=== PATIENT | female | born 1990 | race Caucasian/White ===

== ENCOUNTER 2016-09-18 20:43 | Emergency (ER) | payer OTHER ==
[2016-09-18 21:30] LABS: MANUAL DIFF NEEDED? NO
[2016-09-18 21:35] LABS: BASO% 0.3 % (0.0-0.8); EOS# 0.05 X1000 (0.0-0.7); EOS% 0.4 % (0.0-10.0); HEMATOCRIT 36.6 % (37.0-47.0); HEMOGLOBIN 11.7 g/dL (12.0-16.0); IMM GRAN# 0.02 X1000 (0.0-0.04); IMM GRAN% 0.2 % (0.0-0.5); LYMPH# 1.35 X1000 (1.2-3.4); LYMPH% 11.6 % (20.5-51.1); MCH 26.7 PG (27-31); MCV 83.6 FL (81-99); MONO# 0.46 X1000 (0.11-0.59); MPV 12.6 FL (7.4-10.4); NEUT% 83.5 % (42.2-75.2); PLT 275 X1000 (130-400); RBC 4.38 XMIL (4.2-5.4)
--- NOTE | 2016-09-18 21:40 | PROVIDER DOCUMENTATION ---
HPI-Abdominal Pain/GI Problem - General Chief Complaint: Abdominal Pain Stated Complaint: GALBLADDER, VOMITING Time Seen by Provider: 09/18/16 21:13 Allergies/Adverse Reactions: Patient Allergies Allergy/AdvReac Type Severity Reaction Status Date / Time No Known Allergies Allergy Verified 09/18/16 21:12 Home Medications: Home Medication List Medication Instructions Recorded Confirmed Last Taken Type Hydrocodone/APAP 7.5 mg/325 mg 1 each PO Q6H PRN PRN #12 tablet 09/18/16 Unknown Rx [[place]-7.5] Promethazine [Phenergan] 25 mg PO Q6H PRN PRN #20 tablet 09/18/16 Unknown Rx - History of Present Illness-ABD Nature of Presenting Problems: Pt has been seen and diagnosed with gallstones. Unfortunately, she is and no one will remover her gallbladder. She has pain 10/10 in her RUQ that radiates to her back and nausea and vomiting. She states at this time she cannot handle the pain. Spoke to the patient about following up a PCP or obgyn Review of Systems - Adult - REVIEW OF SYSTEMS - ADULT Constitutional: reports: no symptoms reported. denies: chills, fever, fatique, night sweats, weight gain, weight loss Eyes: reports: no symptoms reported. denies: discharge, decreased vision, blurred vision, double vision, eye pain, redness Ears, Nose, Mouth & Throat: reports: no symptoms reported. denies: ear discharge, hearing loss, tinnitus, epistaxis, nose pain, mouth/dental pain, hoarseness, throat swelling Cardiovascular: reports: no symptoms reported. denies: chest pain, edema, heart murmur, irregular heart rate, palpitations, poor circulation, syncope Respiratory: reports: no symptoms reported. denies: chronic cough, dyspnea on exertion, excessive sputum production, hemoptysis, shortness of breath, wheezing Gastrointestinal: reports: see HPI, abdominal pain, nausea, rectal bleeding. denies: hematemesis, constipation, diarrhea, frequent heartburn Genitourinary: reports: no symptoms reported. denies: dysuria, discharge, frequency, flank pain, frequent UTI's, hematuria, urinary retention, urgency Musculoskeletal: reports: no symptoms reported. denies: bone pain, back pain, frequent leg cramps, joint swelling, muscle aches, muscle weakness, neck pain Integumentary: reports: no symptoms reported. denies: hives, hair loss, mole changes, rash, skin sores/ulcer, skin thickening Neurological: reports: no symptoms reported. denies: ataxia, dizziness/vertigo , headache/migraines, loss of balance, paresthesia, slurred speech, syncope, tremors Psychiatric: reports: no symptoms reported. denies: anxiety, alcohol/drug dependence, depression, insomnia, panic attacks, suicidal thoughts Endocrine: reports: no symptoms reported. denies: change in skin pigment, excessive sweating, goiter, cold intolerance, increased hunger, increased thirst , polyuria Hematologic/Lymphatic: reports: no symptoms reported. denies: blood clots, low blood count, prolonged bleeding, swollen lymph nodes, transfusions Allergic/Immunologic: reports: no symptoms reported. denies: allergic reactions , allergic rhinitis, asthma, eczema, frequent infections, hives, positive PPD, urticaria All Other Systems: Reviewed and Negative Past History - Adult - PAST MEDICAL HISTORY-ADULT Review of Records: reports: Old Records Reviewed, Nursing Assessment Review, Medications Reviewed, Social history reviewed & non-contributory. Major Childhood Illnesses: reports: denies history Cardiovascular: reports: denies history Respiratory: reports: denies history Gastrointestinal: reports: other (known GB dz) Obstetrical/Gynecological: reports: denies history Genitourinary: reports: denies history Musculoskeletal: reports: denies history Neurological: reports: denies history Endocrine/Immune: reports: denies history Other Conditions: reports: denies history - PRIOR SURGERIES/PROCEDURES Surgical/Procedure History: reports: none, orthopedic (extremity) (L leg ) - IMMUNIZATION STATUS Childhood Immunizations: See Nurse Assessment Flu Vaccine: See Nurse Assessment - FAMILY HISTORY Family History: reviewed, not pertinent - SOCIAL HISTORY Smoking: denies Substance Use: none/never Alcohol Use Frequency: never Living Situation: family Physical Exam-General - PHYSICAL EXAM-ADULT Initial Vital Signs Reviewed: Yes - CONSTITUTIONAL General Appearance: appears well, alert, no apparent distress - EYES Eyes: PERRL/EOMI, pink conjunctivae - HEAD, EARS, NOSE, MOUTH & THROAT HENMT: normocephalic/atraumatic, moist mucous membranes, normal ENT inspection - NECK Neck: non-tender, full range of motion, supple - RESPIRATORY Respiratory: chest non-tender, lungs clear, normal breath sounds, no pleuratic chest pain, no respiratory distress, no accessory muscle use - CARDIOVASCULAR Cardiovascular: normal peripheral pulses, regular rate, rhythm, no edema - CHEST (BREASTS) Chest/Breast: deferred - GASTROINTESTINAL (ABDOMEN) Abdominal Exam: normal bowel sounds, soft, tenderness, Joyner's sign - GENITOURINARY Female Genitalia/Pelvic Exam: deferred Rectal Exam: deferred - MUSCULOSKELETAL Back Exam: normal inspection, no CVA tenderness, no vertebral tenderness Extremity: normal range of motion, non-tender, normal gait, normal inspection - SKIN Integumentary: normal color, normal turgor, warm/dry - NEUROLOGIC Neurologic: residential sales II-XII nml as tested, grossly normal - PSYCHIATRIC Psych/Mental Status: normal mood/affect, normal thought content, normal thought process, oriented x 3 Progress - PLAN OF CARE/RESULTS Progress/Plan/Lab Results: Laboratory Tests 09/18/16 09/18/16 09/18/16 21:20 21:20 21:20 WBC 11.63 H RBC 4.38 Hgb 11.7 L Hct 36.6 L MCV 83.6 MCH 26.7 L MCHC 32.0 L RDW Std Deviation 14.3 Plt Count 275 MPV 12.6 H Immature Gran % (Auto) 0.2 Neut % (Auto) 83.5 H Lymph % (Auto) 11.6 L [place] % (Auto) 4.0 Eos % (Auto) 0.4 Baso % (Auto) 0.3 Immature Gran # (Auto) 0.02 Neut # (Auto) 9.72 H Lymph # (Auto) 1.35 [place] # (Auto) 0.46 Eos # (Auto) 0.05 Baso # (Auto) 0.03 Sodium 141 Potassium 4.3 Chloride 101 Carbon Dioxide 23 L Anion Gap 17 BUN 9 Creatinine 0.7 Estimated GFR/1.73 m2 > 60 BUN/Creatinine Ratio 13 Glucose 145 H Calculated Osmolality 283 Calcium 9.0 Total Bilirubin 0.58 AST 24 ALT 12 Alkaline Phosphatase 108 H Total Protein 7.7 Albumin 4.1 Globulin 3.6 Albumin/Globulin Ratio 1.1 Amylase 47 Lipase 31 Serum , Qual POSITIVE Orders Category Date Time Status AMYLASE [CHEM] Stat Lab 09/18/16 21:20 Completed CBC WITH DIFF [HEME] Stat Lab 09/18/16 21:20 Completed COMPREHENSIVE METABOLIC PANEL [CHEM] Stat Lab 09/18/16 21:20 Completed LIPASE [CHEM] Stat Lab 09/18/16 21:20 Completed TEST-SERUM [PREG] Stat Lab 09/18/16 21:20 Completed UA NIMS W/REFLEX CULT [URINALYSIS] Stat Lab 09/18/16 20:54 Uncollected Hydrocodone/APAP 10 mg/325 mg [[place]-10] Med 09/18/16 21:49 Discontinued 1 each PO NOW ONE Promethazine [Phenergan] Med 09/18/16 21:49 Discontinued 25 mg IM NOW ONE Vital Signs - 24 hr 09/18/16 20:50 Temperature 97.4 F L Pulse Rate 62 Respiratory 18 Rate Blood Pressure 127/61 O2 Sat by Pulse 100 Oximetry Departure - Departure Time of Disposition Order: 21:50 DIAGNOSIS: Gallstones, Nausea Abdominal pain Qualifiers: Abdominal location: right upper quadrant Qualified Code(s): R10.11 - Right upper quadrant pain Disposition: HOME 01 Certified Medical Emergency: Emergent Condition: Good Additional Instructions: follow up with PCP ED Follow Up Instructions: You have been treated by a care provider in the Emergency Department. These instructions are being provided to you so you can have an understanding of how to care for yourself upon discharge. Upon discharge from the Emergency Department, you are responsible for making arrangements for follow-up care by a physician of your choice. Take all prescribed medications as directed. Return to the Emergency Department immediately for any new or worsening symptoms. You may call the Physician Referral phone number at [phone] to obtain a list of Physicians who are taking new patients. Prescriptions: Hydrocodone/APAP 7.5 mg/325 mg [[place]-7.5] 1 each PO Q6H PRN PRN #12 tablet PRN Reason: Pain Promethazine [Phenergan] 25 mg PO Q6H PRN PRN #20 tablet PRN Reason: Nausea Referrals: None,PCP [Primary Care Provider] - Instructions: Nausea, Adult, Abdominal Pain, Adult, [id number], Cholecystitis , [id number] Attestation - Physician/ FARHAN Attestation Patient care was provided by Advanced Practice Provider:: Yes Advanced Practice Provider:: Dale Gandhi Advanced Practice Provider documentation review:: The Mid-level provider documentation, treatment plan and medical decision making was reviewed by the physician who agrees with all treatment and medical decision making by the MLP.
[2016-09-18 21:48] LABS: AGAP 17; ALBUMIN 4.1 g/dL (3.5-5.0); ALKALINE PHOSPHATASE 108 U/L (32-104); AMYLASE 47 U/L (20-200); BUN 9 mg/dL (8-22); CHLORIDE 101 mmol/L (98-107); COSMO 283; GOT 24 U/L (10-30); GPT 12 U/L (10-36); LIPASE 31 U/L (13-60); POTASSIUM 4.3 mmol/L (3.5-5.1); SODIUM 141 mmol/L (136-145); TCO2 23 mmol/L (25-35); TOTAL BILIRUBIN 0.58 mg/dL (0.20-1.00); TOTAL PROTEIN 7.7 g/dL (6.3-8.3)
[2016-09-18] MEDS ORDERED: NORCO-10 PO ONE (21:49)
[2016-09-18] MEDS ORDERED: PHENERGAN IM ONE (21:49)
[2016-09-18 22:02] VITALS: BP 122/66
== END 2016-09-18 22:03 | disposition home or self-care (01) ==
LOC: ED 20:43
DX: O99.611 Diseases of the digestive system complicating pregnancy, first trimester (principal); K80.80 Other cholelithiasis without obstruction; Z3A.01 Less than 8 weeks gestation of pregnancy; O26.891 Other specified pregnancy related conditions, first trimester; R11.0 Nausea; R10.11 Right upper quadrant pain; K62.5 Hemorrhage of anus and rectum
CPT/HCPCS: 80053; 82150; 83690; 84703; 85025; J2550